=== PATIENT | male | born 1940 | race Caucasian/White ===

== ENCOUNTER 2020-12-12 11:49 | Day surgery (SDC) | payer MEDICARE ==
[~2020-12-12] VITALS: Ht 179.1 cm; Wt 69.6 kg
[2020-12-12] MEDS ORDERED: TAMS-11 PO (11:59)
[2020-12-12] MEDS ORDERED: CALC0.25 PO (11:59)
[2020-12-12] MEDS ORDERED: EZET10TA70 PO (11:59)
[2020-12-12] MEDS ORDERED: FERR325T18 PO (11:59)
[2020-12-12] MEDS ORDERED: CLON1TAB11 PO (11:59)
[2020-12-12] MEDS ORDERED: OXYB5TAB10 PO (11:59)
[2020-12-12] MEDS ORDERED: GABA600T7 PO (11:59)
[2020-12-12] MEDS ORDERED: RIVA15TA PO (11:59)
[2020-12-12] MEDS ORDERED: FURO20TA3 PO (11:59)
[2020-12-12] MEDS ORDERED: ROSU10TA2 PO (11:59)
[2020-12-12] MEDS ORDERED: TEMA30CA PO (11:59)
[2020-12-12] MEDS ORDERED: ASPI81TA45 PO (11:59)
[2020-12-12] MEDS ORDERED: PLEASE ENTER HEIGHT AND WEIGHT MC SCH (12:30)
[2020-12-12] MEDS ORDERED: DIPHENHYDRAMINE 50 MG/ML, 1ML IVPush ONE (12:30)
[2020-12-12 12:33] VITALS: BP 127/32
[2020-12-12 12:37] LABS: BASOPHILS % (AUTO) 1 % (0-1); EOSINOPHILS % (AUTO) 1 % (1-7); LYMPHOCYTES % (AUTO) 19 % (22-44); MD NO; MEAN CORPUSCULAR HEMOGLOBIN 34.3 pg (27.5-34.5); MEAN CORPUSCULAR HGB CONC 33.6 g/dL (33.2-36.2); MEAN PLATELET VOLUME 10.7 fL (7.4-10.4); MONOCYTES % (AUTO) 8 % (2-9); NEUTROPHILS % (AUTO) 72 % (42-75); PLATELET COUNT 67 x10^3/uL (130-400); RED CELL DISTRIBUTION WIDTH 15.3 % (9.4-14.8)
[2020-12-12] MEDS ORDERED: DIPHENHYDRAMINE 50 MG/ML, 1ML ONE (12:38)
[2020-12-12] MEDS ORDERED: BUME1TAB21 PO (12:45)
[2020-12-12 12:48] LABS: ANION GAP 4 mmol/L (5-15); CALCIUM 9.2 mg/dL (8.5-10.1); CHLORIDE 101 mmol/L (98-107); CREATININE 2.15 mg/dL (0.7-1.3)
[2020-12-12 12:49] LABS: INTERNATIONAL NORMALIZED RATIO 1.12 (0.93-1.1)
[2020-12-12] MEDS ORDERED: MIDAZOLAM 1 MG/ML, 2ML ONE (13:12)
[2020-12-12] MEDS ORDERED: FENTANYL PF 100 MCG/2ML ONE (13:13)
[2020-12-12] MEDS ORDERED: LIDOCAINE-MPF 1%, 5ML ONE (13:13)
[2020-12-12] MEDS ORDERED: ISOS30TA8 PO (15:03)
== END 2020-12-12 15:48 | disposition home or self-care (01) ==
LOC: CACL 11:49
PROVIDERS: ATTEND Internal Medicine Cardiovascular Disease
DX: I27.20 Pulmonary hypertension, unspecified (principal); I10 Essential (primary) hypertension; Z79.01 Long term (current) use of anticoagulants; Z79.82 Long term (current) use of aspirin; Z79.899 Other long term (current) drug therapy; Z86.718 Personal history of other venous thrombosis and embolism; Z86.711 Personal history of pulmonary embolism; Z87.891 Personal history of nicotine dependence; Z95.2 Presence of prosthetic heart valve
CPT/HCPCS: 36415; 80048; 82803; 83880; 85025; 85610; 85730; 93451; 99156; C1894; J1200; J2250; J3010